=== PATIENT | female | born 1995 | race Caucasian/White ===

== ENCOUNTER 2016-05-01 22:49 | Emergency (ER) | payer OTHER ==
[~2016-05-01] VITALS: Ht 152.4 cm; Wt 52.2 kg
[~2016-05-01 22:49] MED LIST: ZOFRAN ODT4 MG PO
[2016-05-01 23:10] LABS: HEMATOCRIT 36.3 % (36.0-46.0); MCH 28.9 PG (29.0-34.0); MCHC 33.9 G/DL (30.0-36.0); MCV 85.4 FL (83-99); MEAN PLAT.VOLUME 9.9 uM^3 (9.5-12.4); PLATELET COUNT 265 K/uL (156-360); RBC DIS.WIDTH-CV 12.2 % (11.8-14.6); RBC DIS.WIDTH-SD 36.7 % (39-53); RED BLOOD COUNT 4.25 M/uL (3.80-5.20); WHITE BLOOD COUNT 10.3 K/uL (4.1-10.2)
[2016-05-01 23:23] LABS: CHLORIDE 103 mEq/L (99-109); POTASSIUM 3.3 mEq/L (3.7-5.4); SODIUM 136 mEq/L (136-147)
[2016-05-01 23:25] LABS: GLUCOSE 128 mg/dL (70-99)
[2016-05-01 23:26] LABS: ANION GAP 10 MEQ/L (2-14)
[2016-05-01 23:29] LABS: ALKALINE PHOSPHATASE 73 IU/L (3-129); GFR ESTIMATE (CALCULATED) > 59 mL/min/
[2016-05-01 23:30] LABS: UREA NITROGEN (BUN) 11 mg/dL (9-23)
[2016-05-01 23:38] LABS: QUANTITATIVE HCG < 4.0 MIU/ML
[2016-05-02 00:01] LABS: LIPASE 8 U/L (1.0-51.0)
[2016-05-02 01:19] LABS: ADD MIUA? YES; BILIRUBIN NEGATIVE; BLOOD LARGE; COLOR YELLOW ((YELLOW)); GLUCOSE (STRIP) NEGATIVE; KETONES NEGATIVE; LEUKOCYTES TRACE; NITRITE NEGATIVE; PROTEIN (STRIP) NEGATIVE; SPECIFIC GRAVITY 1.015 (1.000-1.030); UROBILINOGEN 0.2 MG/DL (0.2-1.0)
[2016-05-02] MEDS ORDERED: NORCO 5/3251 TABLET PO (01:38)
[2016-05-02 01:39] LABS: BACTERIA RARE; CASTS NONE SEEN /LPF; CRYSTALS NONE SEEN; EPITHELIAL CELLS RARE; MUCUS RARE; UCUL ADDED? NO; WHITE BLOOD CELLS 0-5 /HPF (0-5)
[2016-05-02 01:59] VITALS: BP 110/75
[2016-05-03] MEDS ORDERED: BENTYL10 MG PO (18:53)
[2016-05-03] MEDS ORDERED: ZOFRAN ODT4 MG PO (18:53)
== END 2016-05-02 02:00 | disposition home or self-care (01) ==
LOC: EME 22:49
DX: K80.20 Calculus of gallbladder without cholecystitis without obstruction (principal)
CPT/HCPCS: 76705; 80053; 81003; 83690; 84702; 85027; 99281; 99284

== ENCOUNTER 2016-05-03 15:36 | Emergency (ER) | payer OTHER ==
[~2016-05-03] VITALS: Ht 152.4 cm; Wt 51.9 kg
[~2016-05-03 15:36] MED LIST changes: +NORCO 5/3251 TABLET PO
[2016-05-03 16:38] LABS: HEMATOCRIT 35.5 % (36.0-46.0); MCH 29.3 PG (29.0-34.0); MCHC 34.1 G/DL (30.0-36.0); PLATELET COUNT 284 K/uL (156-360); RBC DIS.WIDTH-SD 36.2 % (39-53); RED BLOOD COUNT 4.13 M/uL (3.80-5.20); WHITE BLOOD COUNT 8.1 K/uL (4.1-10.2)
[2016-05-03 16:50] LABS: CHLORIDE 106 mEq/L (99-109); POTASSIUM 3.6 mEq/L (3.7-5.4); SODIUM 139 mEq/L (136-147)
[2016-05-03 16:52] LABS: GLUCOSE 108 mg/dL (70-99)
[2016-05-03 16:53] LABS: ANION GAP 7 MEQ/L (2-14)
[2016-05-03 16:54] LABS: TOTAL BILIRUBIN 0.8 mg/dL (0.0-1.0)
[2016-05-03 16:55] LABS: ALKALINE PHOSPHATASE 76 IU/L (3-129)
[2016-05-03 16:56] LABS: GFR ESTIMATE (CALCULATED) > 59 mL/min/
[2016-05-03 16:57] LABS: UREA NITROGEN (BUN) 12 mg/dL (9-23)
[2016-05-03 17:09] LABS: QUANTITATIVE HCG < 4.0 MIU/ML
[2016-05-03 17:55] LABS: ADD MIUA? YES; BILIRUBIN NEGATIVE; BLOOD TRACE; COLOR DK YELLOW ((YELLOW)); GLUCOSE (STRIP) NEGATIVE; KETONES TRACE; LEUKOCYTES SMALL; NITRITE NEGATIVE; PROTEIN (STRIP) TRACE; SPECIFIC GRAVITY 1.024 (1.000-1.030)
[2016-05-03 18:20] LABS: LIPASE 12 U/L (1.0-51.0)
[2016-05-03] MEDS ORDERED: ZOFRAN ODT4 MG PO (18:53)
[2016-05-03] MEDS ORDERED: BENTYL10 MG PO (18:53)
[2016-05-03 19:44] VITALS: BP 107/80
[2016-05-03 19:49] LABS: BACTERIA 1+; CASTS NONE SEEN /LPF; CRYSTALS PRESENT; EPITHELIAL CELLS 1+; PATHOLOGICAL CAST NONE SEEN; RED BLOOD CELLS 0-5 /HPF (0-5); SMALL ROUND CELL NONE SEEN; UCUL ADDED? NO; YEAST-LIKE CELL NONE SEEN
[2016-05-03 19:51] LABS: CALCIUM OXALATE CRYSTALS 2+; MUCUS TRACE
== END 2016-05-03 19:45 | disposition home or self-care (01) ==
LOC: EME 15:36
DX: K80.70 Calculus of gallbladder and bile duct without cholecystitis without obstruction (principal)
CPT/HCPCS: 76705; 80053; 81003; 83690; 84702; 85027; 99281; 99283

== ENCOUNTER 2016-06-06 05:03 | Day surgery (SDC) | payer OTHER ==
[~2016-06-06] VITALS: Ht 149.9 cm; Wt 50.8 kg
[~2016-06-06 05:03] MED LIST changes: +BENTYL10 MG PO; +HYDROCODON-ACE1 EAC7 PO; +ZOFRAN4 MG PO
[2016-06-06 07:07] VITALS: BP 109/69
[2016-06-06] MEDS ORDERED: NORCO 5/3251 TABLET PO (08:32)
[2016-06-06 09:55] VITALS: BP 99/58
[2016-06-06 10:55] VITALS: BP 110/70
[2016-06-06 12:10] VITALS: BP 103/54
== END 2016-06-06 12:25 | disposition home or self-care (01) ==
LOC: SDC 05:03
PROC: 0FT44ZZ Resection of Gallbladder, Percutaneous Endoscopic Approach (ICD-10-PCS; principal; 2016-06-06)
DX: K80.10 Calculus of gallbladder with chronic cholecystitis without obstruction (principal); K66.0 Peritoneal adhesions (postprocedural) (postinfection); N70.11 Chronic salpingitis
CPT/HCPCS: 84132; 88304; C1769; J1100; J1170; J2250; J2405; J3010